=== PATIENT | female | born 1985 | race African-American/Black ===

== ENCOUNTER 2018-06-02 17:28 | Emergency (ER) | payer OTHER ==
[2018-06-02 18:23] LABS: URINE HCG POC HCG POSITIVE (Negative)
[2018-06-02 18:31] LABS: BILIRUBIN,URINE NEGATIVE (NEG); CLARITY,URINE TURBID; COLOR,URINE YELLOW; GLUCOSE,URINE NEGATIVE (NEG); NITRITE,URINE NEGATIVE (NEG); PROTEIN,URINE NEGATIVE (NEG-TRACE)
[2018-06-02] MEDS: ONDANSETRON PF 4 MG/2 ML VIAL. IV (18:38)
[2018-06-02] MEDS: IV NORMAL SALINE 1000ML BAG 1,000 ML IV (18:38)
[2018-06-02 18:39] LABS: AMORPHOUS SEDIMENT,UR PRESENT /HPF; BACTERIA,URINE FEW /HPF (0-FEW); RBC,URINE 0 /HPF (0-2); SQUAMOUS EPITHELIAL CELL,UR MOD /LPF; WBC,URINE 0 /HPF (0-4)
[2018-06-02 18:44] LABS: ADD MAN DIFF? NO
[2018-06-02 18:46] LABS: BASO # 0.1 x10^3/uL (0.0-0.2); BASO % 1 % (0-3); EOS # 0.1 x10^3/uL (0.0-0.7); EOS % 1 % (0-3); HEMATOCRIT 37.5 % (36.0-47.0); HEMOGLOBIN 12.7 g/dL (12.0-15.5); LYMPH # 2.8 x10^3/uL (1.0-4.8); LYMPH % 27 % (24-48); MEAN CORPUSCULAR HEMOGLOBIN 32 pg (25-35); MEAN CORPUSCULAR HGB CONC 34 g/dL (31-37); MEAN CORPUSCULAR VOLUME 96 fL (79-100); MONO # 0.6 x10^3/uL (0.0-1.1); MONO % 5 % (0-9); NEUT # 7.1 x10^3uL (1.8-7.7); NEUT % 66 % (31-73); PLATELET COUNT 251 x10^3/uL (140-400); RED BLOOD COUNT 3.93 x10^6/uL (3.50-5.40); RED CELL DISTRIBUTION WIDTH 13.1 % (11.5-14.5); WHITE BLOOD COUNT 10.7 x10^3/uL (4.0-11.0)
[2018-06-02 18:55] LABS: ANION GAP 10 (6-14); BLOOD UREA NITROGEN 6 mg/dL (7-20); BUN/CREATININE RATIO 12 (6-20); CALCIUM 9.2 mg/dL (8.5-10.1); CARBON DIOXIDE 26 mmol/L (21-32); CHLORIDE 100 mmol/L (98-107); CREATININE 0.5 mg/dL (0.6-1.0); GFR 170.9; GLUCOSE 86 mg/dL (70-99); SODIUM 136 mmol/L (136-145)
[2018-06-02 19:01] LABS: ALBUMIN 4.2 g/dL (3.4-5.0); ALBUMIN/GLOBULIN RATIO 1.1 (1.0-1.7); ALK PHOS 63 U/L (46-116); ALT (SGPT) 22 U/L (14-59); AST (SGOT) 17 U/L (15-37); TOTAL BILIRUBIN 0.5 mg/dL (0.2-1.0)
== END 2018-06-02 20:00 | disposition home or self-care (01) ==
LOC: ER 17:28
DX: O21.9 Vomiting of pregnancy, unspecified (principal); R11.0 Nausea; Z88.8 Allergy status to other drugs, medicaments and biological substances
CPT/HCPCS: 36415; 80053; 81001; 81025; 84702; 85025; 96361; 96374; 99284-25; J2405; J7030

== ENCOUNTER → 2018-07-26 | Outpatient (CLI) | payer OTHER ==
[2018-06-02 17:59] VITALS: BP 114/69
[~2018-07-26] MED LIST: ONDA4TAB7 PO
--- NOTE | 2018-07-28 19:04 | RAD ---
Obstetrical ultrasound, 07/26/2018: HISTORY: Supervision of normal Transabdominal scans were obtained. There is a single intrauterine fetus in a variable orientation. The biparietal diameter measures 4.4 cm compatible with a gestational age of 19-20 weeks. This corresponds well to the other measurements yielding an average gestational age of 19 weeks and 5 days and a sonographic EDC of 12/15/2018. Normal activity and heart motion are seen. A four-chamber heart is evident with a heart rate of 149 bpm. Fluid is evident in the bladder and stomach. The visualized portions of the spine and kidneys are unremarkable. A three-vessel umbilical cord is evident with a normal cord insertion site. The placenta lies posteriorly. Its inferior tip lies near the internal cervical os. The cervix was not clearly delineated, however, it it was measured at 2.6 cm. A normal amount of amniotic fluid is present with the MATTHEW calculated at 13.0. The maternal ovaries were not visualized. IMPRESSION: 1. Single viable intrauterine fetus of 19-20 weeks gestational age. 2. Low-lying placenta. 3. Shortened cervix. 4. Sonographic follow-up is suggested. Electronically signed by: Naveed Meadows MD (07/28/2018 7:00 PM) [facility]
== END | disposition home or self-care (01) ==
LOC: US 15:40
PROVIDERS: ATTEND Obstetrics & Gynecology
DX: O44.42 Low lying placenta NOS or without hemorrhage, second trimester (principal); Z3A.20 20 weeks gestation of pregnancy; Z85.41 Personal history of malignant neoplasm of cervix uteri
CPT/HCPCS: 76805

== ENCOUNTER 2018-09-25 12:02 | Observation (INO) | payer OTHER ==
[2018-06-02 17:59] VITALS: BP 114/69
[2018-09-25 12:50] LABS: BILIRUBIN,URINE NEGATIVE (NEG); CLARITY,URINE CLEAR; COLOR,URINE YELLOW; NITRITE,URINE NEGATIVE (NEG); PH,URINE 6.5; PROTEIN,URINE NEGATIVE (NEG-TRACE)
[2018-09-25 12:59] LABS: BACTERIA,URINE MODERATE /HPF (0-FEW); RBC,URINE 0 /HPF (0-2); SQUAMOUS EPITHELIAL CELL,UR MANY /LPF
== END 2018-09-25 13:30 | disposition home or self-care (01) ==
LOC: 3 SO LND 12:02
PROVIDERS: ADMIT Obstetrics & Gynecology; ATTEND Obstetrics & Gynecology
DX: O26.893 Other specified pregnancy related conditions, third trimester (principal); N89.8 Other specified noninflammatory disorders of vagina; Z3A.28 28 weeks gestation of pregnancy
CPT/HCPCS: 81001; 87086; G0378; G0379

== ENCOUNTER 2018-10-09 10:33 | Observation (INO) | payer OTHER ==
[2018-06-02 17:59] VITALS: BP 114/69
[2018-10-09 12:00] LABS: BILIRUBIN,URINE NEGATIVE (NEG); CLARITY,URINE CLOUDY; COLOR,URINE YELLOW; NITRITE,URINE NEGATIVE (NEG); PH,URINE 7.5; PROTEIN,URINE NEGATIVE (NEG-TRACE)
[2018-10-09 12:18] LABS: BACTERIA,URINE 0 /HPF (0-FEW); RBC,URINE 0 /HPF (0-2); SQUAMOUS EPITHELIAL CELL,UR FEW /LPF; WBC,URINE 0 /HPF (0-4)
== END 2018-10-09 13:03 | disposition home or self-care (01) ==
LOC: 3 SO LND 10:33
PROVIDERS: ADMIT Obstetrics & Gynecology; ATTEND Obstetrics & Gynecology
DX: O99.89 Other specified diseases and conditions complicating pregnancy, childbirth and the puerperium (principal); M54.9 Dorsalgia, unspecified; Z3A.30 30 weeks gestation of pregnancy
CPT/HCPCS: 81001; G0378; G0379

== ENCOUNTER 2018-11-26 19:05 | Observation (INO) | payer OTHER ==
[2018-06-02 17:59] VITALS: BP 114/69
[2018-11-26] MEDS ORDERED: IV RINGERS,LACTATED 1000ML 1,000 ML IV SCH (19:14)
[2018-11-26 19:52] LABS: BILIRUBIN,URINE NEGATIVE (NEG); CLARITY,URINE CLOUDY; COLOR,URINE YELLOW; NITRITE,URINE NEGATIVE (NEG); PH,URINE 6.5; PROTEIN,URINE NEGATIVE (NEG-TRACE)
[2018-11-26 19:58] LABS: BARBITURATES NEG (NEG); BENZODIAZEPINES NEG (NEG); CANNABINOIDS NEG (NEG); COCAINE NEG (NEG); METHADONE NEG (NEG); OPIATES NEG (NEG); PHENCYCLIDINE NEG (NEG)
[2018-11-26 19:59] LABS: AMPHETAMINE/METHAMPHETAMINE NEG (NEG)
[2018-11-26 20:04] LABS: AMORPHOUS SEDIMENT,UR PRESENT /HPF; BACTERIA,URINE FEW /HPF (0-FEW); RBC,URINE OCC /HPF (0-2); SQUAMOUS EPITHELIAL CELL,UR MOD /LPF; WBC,URINE OCC /HPF (0-4)
[2018-11-26] MEDS ORDERED: hydrOXYzine PAMOATE 25 MG CAPSULE PO PRN (20:30)
== END 2018-11-26 20:54 | disposition home or self-care (01) ==
LOC: 3 SO LND 19:05
PROVIDERS: ADMIT Obstetrics & Gynecology; ATTEND Obstetrics & Gynecology
DX: O62.9 Abnormality of forces of labor, unspecified (principal); Z3A.37 37 weeks gestation of pregnancy
CPT/HCPCS: 80307; 81001; G0378; G0379; Q0177

== ENCOUNTER 2018-11-30 22:56 | Observation (INO) | payer OTHER ==
[2018-06-02 17:59] VITALS: BP 114/69
[2018-11-30] MEDS ORDERED: IV RINGERS,LACTATED 1000ML 1,000 ML IV SCH (23:00)
[2018-12-01 00:25] LABS: BILIRUBIN,URINE NEGATIVE (NEG); CLARITY,URINE CLEAR; COLOR,URINE YELLOW; NITRITE,URINE NEGATIVE (NEG); PROTEIN,URINE NEGATIVE (NEG-TRACE); UROBILINOGEN,URINE 0.2 mg/dL (0.2 mg/dL)
[2018-12-01 00:39] LABS: BACTERIA,URINE MODERATE /HPF (0-FEW); RBC,URINE 0 /HPF (0-2); SQUAMOUS EPITHELIAL CELL,UR MOD /LPF; WBC,URINE OCC /HPF (0-4)
[2018-12-17] MEDS ORDERED: IBUP-1027 PO (12:26)
== END 2018-12-01 01:00 | disposition home or self-care (01) ==
LOC: 3 SO LND 22:56
PROVIDERS: ADMIT Obstetrics & Gynecology; ATTEND Obstetrics & Gynecology
DX: O62.9 Abnormality of forces of labor, unspecified (principal); Z3A.37 37 weeks gestation of pregnancy
CPT/HCPCS: 81001; 87086; G0378; G0379

== ENCOUNTER 2018-12-07 16:32 | Observation (INO) | payer OTHER ==
[2018-06-02 17:59] VITALS: BP 114/69
--- NOTE | 2018-12-07 19:50 | RAD ---
Obstetrical ultrasound HISTORY: Limited perceived movement. FINDINGS: Single intrauterine fetus is identified. Placenta is posterior. Amniotic fluid index is 15.7, within normal limits. movement is documented. cardiac activity is documented with a heart rate of 135 bpm. Biparietal diameter, head circumference, abdominal circumference and femur length are measured. Estimated sonographic age is 38 weeks 2 days with an estimated due date of December 19, 2018. Estimated weight is 7 lbs. 11 oz. +/- 18 ounces. Fetus is in a cephalic presentation. Anatomic survey not performed. IMPRESSION: Single viable intrauterine , estimated age 38 weeks 2 days. Electronically signed by: Juwan Aguiar MD (12/07/2018 7:45 PM) [facility]
[2018-12-17] MEDS ORDERED: IBUP-1027 PO (12:26)
== END 2018-12-07 20:17 | disposition home or self-care (01) ==
LOC: 3 SO LND 16:32
PROVIDERS: ADMIT Obstetrics & Gynecology; ATTEND Obstetrics & Gynecology
DX: O36.8130 Decreased fetal movements, third trimester, not applicable or unspecified (principal); Z3A.38 38 weeks gestation of pregnancy
CPT/HCPCS: 76815; G0378; G0379

== ENCOUNTER 2018-12-10 12:36 | Observation (INO) | payer OTHER ==
[2018-06-02 17:59] VITALS: BP 114/69
== END 2018-12-10 14:50 | disposition home or self-care (01) ==
LOC: 3 SO LND 12:36
PROVIDERS: ADMIT Obstetrics & Gynecology; ATTEND Obstetrics & Gynecology
DX: O62.9 Abnormality of forces of labor, unspecified (principal); Z3A.39 39 weeks gestation of pregnancy
CPT/HCPCS: G0378; G0379

== ENCOUNTER 2019-02-15 06:58 | Day surgery (SDC) | payer OTHER ==
[~2019-02-15 06:58] MED LIST changes: +BUPIVACAINE-EPI 0.25%-1:200000 MPF 30 ML VIAL. ONE; +IBUP-1027 PO
[2019-02-15] MEDS ORDERED: LIDOCAINE 1% PF 2 ML VIAL. ID PRN (07:00)
[2019-02-15] MEDS ORDERED: PROCHLORPERAZINE 10 MG/2 ML VIAL. IV PRN (07:00)
[2019-02-15] MEDS ORDERED: MORPHINE SULFATE 2 MG/ML VIAL. IV PRN (07:00)
[2019-02-15] MEDS ORDERED: HYDROmorphone 2 MG/ML VIAL IV PRN (07:00)
[2019-02-15] MEDS ORDERED: fentaNYL PF VIAL 100 MCG/2 ML VIAL IV PRN (07:00)
[2019-02-15] MEDS ORDERED: IV RINGERS,LACTATED 1000ML 1,000 ML IV SCH (07:00)
[2019-02-15] MEDS ORDERED: ONDANSETRON PF 4 MG/2 ML VIAL. IV PRN (07:00)
[2019-02-15 07:42] LABS: U PREG PATIENT NEGATIVE (NEG)
[2019-02-15] MEDS ORDERED: LIDOCAINE 2% PF 5 ML VIAL. ONE (08:12)
[2019-02-15] MEDS ORDERED: PROPOFOL 20 ML IV ONE (08:12)
[2019-02-15] MEDS ORDERED: FAMOTIDINE 20 MG/2 ML VIAL ONE (08:13)
[2019-02-15] MEDS ORDERED: ROCURONIUM 50 MG/5 ML VIAL. ONE (08:13)
[2019-02-15] MEDS ORDERED: DEXAMETHASONE SOD PHOS 20 MG/5 ML VIAL. ONE (08:13)
[2019-02-15] MEDS ORDERED: ONDANSETRON PF 4 MG/2 ML VIAL. ONE (08:13)
[2019-02-15] MEDS ORDERED: MIDAZOLAM HCL/PF 2 MG/2 ML VIAL. ONE (08:15)
[2019-02-15] MEDS ORDERED: fentaNYL PF VIAL 100 MCG/2 ML VIAL ONE ×2 (08:15→09:30)
[2019-02-15] MEDS ORDERED: NEOSTIGMINE METHYLSULFATE 5 MG/5 ML SYRINGE. ONE ×2 (09:05→09:23)
[2019-02-15] MEDS ORDERED: GLYCOPYRROLATE 1 MG/5 ML VIAL. ONE ×2 (09:06→09:23)
[2019-02-15] MEDS ORDERED: SEVOFLURANE 31 TO 60 MINUTES. IH ONE (09:10)
--- NOTE | 2019-02-15 09:27 | PDOC ---
BRIEF OPERATIVE NOTE Date: Feb 15, 2019 Pre-Op Diagnosis Sterilization Post-Op Diagnosis SA[facility] Procedure Performed [facility] BTL Surgeon Dr. Hodgson Anesthesia Type: General Blood Loss 10 ml Specimens Obtained none Findings nml size uterus, nml fallopian tubes and ovaries morales. Complications none Operative Note see dictation ADRIEN HODGSON Jr, MD Feb 15, 2019 09:27
--- NOTE | 2019-02-15 09:28 | DISCH ---
DISCHARGE INSTRUCTIONS Condition on Discharge Condition on Discharge: Stable Activity After Discharge Activity Instructions for Disc: Activity as tolerated Bathing Instructions: No Tub Bath until see Lifting Instructions after Dis: No heavy lifting, No pulling or pushing, Do not lift >10 pounds Driving Instructions after Dis: Do not drive today Diet after Discharge Diet after Discharge: Regular Diet Texture: Regular Wound Incision Care Wound/Incision Care: No wound care needed Contacting the DRBenjamin after DC Call your doctor for: Concerns you may have Follow-Up Follow up with: Dr. Hodgson in 1 week. Treatment/Equipment after DC Adaptive Equipment Issued: None ADRIEN HODGSON Jr, MD Feb 15, 2019 09:28
[2019-02-15] MEDS ORDERED: OXYC-325 PO (09:47)
[2019-02-15] MEDS ORDERED: oxyCODONE/APAP 5/325 1 TAB TABLET ONE (09:53)
[2019-02-15] MEDS: fentaNYL PF VIAL 100 MCG/2 ML VIAL IV PRN ×2 (09:54→10:34)
[2019-02-15] MEDS ORDERED: oxyCODONE/APAP 5/325 1 TAB TABLET PO ONE ×2 (10:00)
--- NOTE | 2019-02-15 10:05 | OP ---
DATE OF SURGERY: PREOPERATIVE DIAGNOSIS: Sterilization. POSTOPERATIVE DIAGNOSIS: Sterilization. PROCEDURE: Laparoscopic BTL. SURGEON: Ervin Hodgson MD ANESTHESIA: GETA. ESTIMATED BLOOD LOSS: Less than 10 mL. COMPLICATIONS: None. FINDINGS: Normal size uterus, normal fallopian tubes and ovaries bilaterally. SUMMARY: This is a 33-year-old female who desired permanent sterilization. She was counseled on risks, benefits and expectations as well as the failure rate and voiced clear understanding to proceed. DESCRIPTION OF PROCEDURE: The patient was taken to surgery suite and placed in dorsal lithotomy position. She was prepped with Betadine solution for vaginal prep and ChloraPrep for abdominal prep. After adequate anesthesia, bivalve speculum was placed vaginally. Anterior lip of the cervix grasped with single tooth tenaculum. Uterine acorn manipulator was then placed. The bivalve speculum was removed. Attention was now placed on abdomen. Small transverse skin incision made just below the umbilicus with the scalpel. The Veress needle was then placed through the infraumbilical incision site. The abdomen was allowed to insufflate up to 1-1/2 liters CO2 gas. The Veress needle was then removed, 5 mm trocar was placed. Scope was positioned. The uterus appeared normal. Fallopian tubes and ovaries appeared normal bilaterally. A second incision was made in the left lower quadrant with scalpel, in which 8 mm trocar was placed. With the aid of the Filshie clip applicator, the Filshie clip was applied to the isthmus region of the right fallopian tube, totally occluding the right fallopian tube. Same process took place with left adnexa. The trocars were then removed under direct visualization. The abdomen was allowed to deflate as much as possible along with mechanical manipulation. The two skin incisions were reapproximated using 4-0 Vicryl suture in subcuticular manner. A 0.25% Marcaine with epinephrine was injected at each incision site. Uterine acorn manipulator and single tooth tenaculum were removed. The patient tolerated the procedure well and was taken to the recovery room in stable condition. Sponge and needle count correct x 3. ERVIN HODGSON MD DR: KEAGAN/bharat JOB#: [id number] / [id number]
[2019-02-15 10:50] VITALS: BP 147/80
== END 2019-02-15 11:25 | disposition home or self-care (01) ==
LOC: SURG 06:58
PROVIDERS: ATTEND Obstetrics & Gynecology
DX: Z30.2 Encounter for sterilization (principal); Z88.1 Allergy status to other antibiotic agents; Z79.899 Other long term (current) drug therapy; Z83.3 Family history of diabetes mellitus; Z82.49 Family history of ischemic heart disease and other diseases of the circulatory system; Z82.3 Family history of stroke; F17.210 Nicotine dependence, cigarettes, uncomplicated; Z98.890 Other specified postprocedural states
CPT/HCPCS: 58671; 81025; A4264; A7015; J0780; J1100; J2001; J2250; J2270; J2405; J2704; J2710; J3010; J3490

== ENCOUNTER 2019-02-15 19:38 | Emergency (ER) | payer OTHER ==
[~2019-02-15] VITALS: Ht 165.1 cm; Wt 53.1 kg
[~2019-02-15 19:38] MED LIST changes: -BUPIVACAINE-EPI 0.25%-1:200000 MPF 30 ML VIAL. ONE; +OXYC-325 PO
[2019-02-15 20:12] VITALS: BP 118/70
--- NOTE | 2019-02-15 20:56 | PHYS DOC ---
Past Medical History Past Medical History: Cancer, Other Additional Past Medical Histor: CERVICAL CA (DUDLEY GOINS APRN) Past Surgical History: Tubal ligation, Other Additional Past Surgical Histo: LEEP (DUDLEY GOINS APRN) Alcohol Use: None Drug Use: None (DUDLEY GOINS APRN) Adult General Chief Complaint Chief Complaint: POST-OP PROBLEM HPI HPI Patient is a 33 year old AA female who presents to the ER with complaints of bleeding from her surgical site after coughing. Pt states that the incision below her belly button leaked blood after coughing this evening. She states that earlier today she had a laparoscopic tubal ligation by Dr. Hodgson. She denies any abdominal pain, bruising, or bloating. She denies any pain at this time. (DUDLEY GOINS APRN) Review of Systems Review of Systems Constitutional: Denies fever or chills [] GI: Denies abdominal pain Integument: See HPI Neurologic: Denies headache (DUDLEY GOINS APRN) Allergies Allergies Allergies Coded Allergies Type Severity Reaction Last Updated Verified doxycycline Allergy Intermediate "CAUSES LEGS TO GO NUMB" 02/15/19 Yes (VERA VOGT DO) Physical Exam Physical Exam Constitutional: Well developed, well nourished, no acute distress, non-toxic appearance. [] HENT: Normocephalic, atraumatic, bilateral external ears normal, nose normal. [] Eyes: conjunctiva normal, no discharge. [] Neck: Normal range of motion, no stridor. [] Lungs & Thorax: Respirations even and unlabored, no retractions, no respiratory distress Abdomen: soft, no tenderness, no masses, no pulsatile masses. [] Skin: Warm, dry, no erythema, no rash; 0.5 cm surgical incision site below umbilicus that opens with pressure applied, no active bleeding, no protruding tissue or intestines [] Neurologic: Alert and oriented X 3, no focal deficits noted. [] Psychologic: Affect normal, judgement normal, mood normal. [] (DUDLEY GOINS APRN) Current Patient Data Vital Signs Vital Signs Date Time Temp Pulse Resp B/P (MAP) Pulse Ox O2 Delivery O2 Flow Rate FiO2 02/15/19 20:12 98.2 65 16 118/70 (86) 99 Room Air 98.2 (VERA VOGT DO) EKG EKG [] (DUDLEY GOINS APRN) Radiology/Procedures Radiology/Procedures the incision site was cleansed with chlorhexadine and sterile saline, dermabond was applied to close the incision site and then 3 steri strips were placed. There were no complications, pt tolerated the procedure well. [] (DUDLEY GOINS APRN) Course & Med Decision Making Course & Med Decision Making Pertinent Labs and Imaging studies reviewed. (See chart for details) 2053- Spoke with Dr. Hodgson about surgical site dehiscence. Per Dr. Hodgson close the site with dermabond and a steri strip. Have patient call the office at 0830 tomorrow morning and schedule an appointment to be seen by him in the office tomorrow. [] (DUDLEY GOINS APRN) Dragon Disclaimer Dragon Disclaimer This electronic medical record was generated, in whole or in part, using a voice recognition dictation system. (DUDLEY GOINS APRN) Departure Departure Impression: Primary Impression: Encounter for examination of surgical site Additional Impression: Surgical history of tubal ligation Disposition: 01 HOME, SELF-CARE Condition: STABLE Referrals: NO PCP (PCP) Patient Instructions: Laparoscopic Tubal Ligation, Care After Additional Instructions: The surgical site was closed per Dr. Hodgson's recommendation. You need to call the office at 0830 tomorrow morning and schedule an appointment to be seen by him in the office tomorrow. Return to the ER if site begins to bleed before then. [] Attending Signature Attending Signature I have reviewed the PA/MINE CAR REPAIRER's note and plan of care. I was available for consultation as needed at all times during the patient's visit in the emergency department. I agree with the clinical impression, plan and disposition. (VERA VOGT DO) Problem Qualifiers DUDLEY GOINS APRN Feb 15, 2019 20:56 VERA VOGT DO Feb 18, 2019 10:05
== END 2019-02-15 21:41 | disposition home or self-care (01) ==
LOC: ER 19:38
DX: N99.820 Postprocedural hemorrhage of a genitourinary system organ or structure following a genitourinary system procedure (principal); Z88.1 Allergy status to other antibiotic agents; Y83.8 Other surgical procedures as the cause of abnormal reaction of the patient, or of later complication, without mention of misadventure at the time of the procedure; Y92.89 Other specified places as the place of occurrence of the external cause
CPT/HCPCS: 12020; 99284-25

== ENCOUNTER 2021-05-16 21:17 | Emergency (ER) | payer MEDICAID, OTHER ==
[~2021-05-16] VITALS: Ht 165.1 cm; Wt 60.0 kg
[2021-05-16] MEDS ORDERED: IV NORMAL SALINE 1000ML BAG 1,000 ML IV ONE (21:45)
[2021-05-16] MEDS ORDERED: ONDANSETRON PF 4 MG/2 ML VIAL. IVP ONE (21:45)
--- NOTE | 2021-05-16 21:48 | ED.ADGEN ---
Past Medical History Past Medical History: Cancer, Other Additional Past Medical Histor: CERVICAL CA Past Surgical History: Tubal ligation, Other Additional Past Surgical Histo: LEEP Smoking Status: Current Every Day Smoker Alcohol Use: Rarely Drug Use: None General Adult EDM: Chief Complaint: DEHYDRATION HPI: HPI: Patient is a 36 year old female brought in by EMS from work for nausea and vomiting, lightheadedness. Concerns for heat exhaustion. Patient has been drinking whiskey in her coffee all day, is unable to state how much she is drank. 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 Patient says she has been drinking due to stressors at home. Review of Systems: Review of Systems: All other systems within normal limits except for as noted in the HPI Current Medications: Current Medications Medications (Trade) Dose Ordered Sig/Patricia Start Time Stop Time Status Last Admin Dose Admin Ondansetron HCl (Zofran) 4 mg 1X ONCE 05/16/21 21:45 05/16/21 21:48 DC 05/16/21 21:45 4 MG Sodium Chloride 1,000 ml @ 1,000 mls/hr 1X ONCE 05/16/21 21:45 05/16/21 22:44 DC 05/16/21 21:45 1,000 MLS/HR Allergies: Allergies: Allergies Coded Allergies Type Severity Reaction Last Updated Verified doxycycline Allergy Intermediate "CAUSES LEGS TO GO NUMB" 02/15/19 Yes Physical Exam: PE: Constitutional: Well developed, well nourished, no acute distress, non-toxic appearance. [] HENT: Normocephalic, atraumatic, bilateral external ears normal, nose normal. [] Eyes: PERRLA, conjunctiva normal, no discharge. [] Neck: No rigidity, supple, no stridor. [] Cardiovascular: Regular rate and rhythm, brisk cap refill [] Lungs & Thorax: Non labored symmetric respirations, no tachypnea or respiratory distress [] Abdomen: Soft, nondistended. Skin: Warm, dry, no erythema, no rash. [] Back: Unremarkable Extremities: No deformities, range of motion grossly intact, no lower extremity edema [] Neurologic: Alert and oriented X 3, no focal deficits noted. [] Psychologic: Affect normal, judgement normal, mood normal. [] Current Patient Data: Labs: Laboratory Tests Test 05/16/21 22:25 White Blood Count 10.7 x10^3/uL (4.0-11.0) Red Blood Count 4.07 x10^6/uL (3.50-5.40) Hemoglobin 13.7 g/dL (12.0-15.5) Hematocrit 40.5 % (36.0-47.0) Mean Corpuscular Volume 100 fL (79-100) Mean Corpuscular Hemoglobin 34 pg (25-35) Mean Corpuscular Hemoglobin Concent 34 g/dL (31-37) Red Cell Distribution Width 13.0 % (11.5-14.5) Platelet Count 218 x10^3/uL (140-400) Neutrophils (%) (Auto) 71 % (31-73) Lymphocytes (%) (Auto) 20 % (24-48) L Monocytes (%) (Auto) 6 % (0-9) Eosinophils (%) (Auto) 2 % (0-3) Basophils (%) (Auto) 1 % (0-3) Neutrophils # (Auto) 7.6 x10^3/uL (1.8-7.7) Lymphocytes # (Auto) 2.2 x10^3/uL (1.0-4.8) Monocytes # (Auto) 0.7 x10^3/uL (0.0-1.1) Eosinophils # (Auto) 0.2 x10^3/uL (0.0-0.7) Basophils # (Auto) 0.1 x10^3/uL (0.0-0.2) Sodium Level 142 mmol/L (136-145) Potassium Level 4.9 mmol/L (3.5-5.1) Chloride Level 109 mmol/L (98-107) H Carbon Dioxide Level 26 mmol/L (21-32) Anion Gap 7 (6-14) Blood Urea Nitrogen 10 mg/dL (7-20) Creatinine 0.8 mg/dL (0.6-1.0) Estimated GFR (Cockcroft-Gault) 97.7 BUN/Creatinine Ratio 13 (6-20) Glucose Level 88 mg/dL (70-99) Calcium Level 9.0 mg/dL (8.5-10.1) Total Bilirubin 0.3 mg/dL (0.2-1.0) Aspartate Amino Transferase (AST) 19 U/L (15-37) Alanine Aminotransferase (ALT) 22 U/L (14-59) Alkaline Phosphatase 60 U/L (46-116) Total Protein 6.8 g/dL (6.4-8.2) Albumin 4.0 g/dL (3.4-5.0) Albumin/Globulin Ratio 1.4 (1.0-1.7) Lipase 48 U/L (73-393) L Ethyl Alcohol Level 132 mg/dL (0-10) H Laboratory Tests 05/16/21 22:25 Laboratory Tests 05/16/21 22:25 Vital Signs: Vital Signs Date Time Temp Pulse Resp B/P (MAP) Pulse Ox O2 Delivery O2 Flow Rate FiO2 05/16/21 22:19 97.3 97.3 05/16/21 21:45 72 18 107/54 (71) 100 Room Air EKG: EKG: [] Heart Score: C/O Chest Pain: No Risk Factors: Risk Factors: DM, Current or recent (<one month) smoker, HTN, HLP, family history of CAD, obesity. Risk Scores: Score 0 - 3: 2.5% MACE over next 6 weeks - Discharge Home Score 4 - 6: 20.3% MACE over next 6 weeks - Admit for Clinical Observation Score 7 - 10: 72.7% MACE over next 6 weeks - Early Invasive Strategies Radiology/Procedures: Radiology/Procedures: [] Course & Med Decision Making: Course & Med Decision Making Patient tolerating p.o., labs unremarkable. Dragsammy Disclaimer: Armando Disclaimer: This electronic medical record was generated, in whole or in part, using a voice recognition dictation system. Departure Departure Impression: Primary Impression: Dehydration Additional Impression: Alcohol intoxication Disposition: HOME / SELF CARE / HOMELESS Condition: STABLE Referrals: NO PCP (PCP) Patient Instructions: Alcohol Intoxication Additional Instructions: Can follow-up with [facility] for information regarding alcohol abuse [phone] or 24 hr crisis line [phone] Problem Qualifiers JOSETTE SEGOVIA MD May 16, 2021 21:47
[2021-05-16 22:41] LABS: BASO # 0.1 x10^3/uL (0.0-0.2); BASO % 1 % (0-3); EOS # 0.2 x10^3/uL (0.0-0.7); EOS % 2 % (0-3); HEMATOCRIT 40.5 % (36.0-47.0); HEMOGLOBIN 13.7 g/dL (12.0-15.5); LYMPH # 2.2 x10^3/uL (1.0-4.8); LYMPH % 20 % (24-48); MEAN CORPUSCULAR HEMOGLOBIN 34 pg (25-35); MEAN CORPUSCULAR HGB CONC 34 g/dL (31-37); MEAN CORPUSCULAR VOLUME 100 fL (79-100); MONO # 0.7 x10^3/uL (0.0-1.1); MONO % 6 % (0-9); NEUT # 7.6 x10^3/uL (1.8-7.7); NEUT % 71 % (31-73); PLATELET COUNT 218 x10^3/uL (140-400); RED BLOOD COUNT 4.07 x10^6/uL (3.50-5.40); WHITE BLOOD COUNT 10.7 x10^3/uL (4.0-11.0)
[2021-05-16 22:54] LABS: CREATININE 0.8 mg/dL (0.6-1.0); GFR 97.7; POTASSIUM 4.9 mmol/L (3.5-5.1)
[2021-05-16 23:00] VITALS: BP 130/85
[2021-05-16 23:00] LABS: ALBUMIN/GLOBULIN RATIO 1.4 (1.0-1.7); TOTAL BILIRUBIN 0.3 mg/dL (0.2-1.0); TOTAL PROTEIN 6.8 g/dL (6.4-8.2)
== END 2021-05-16 23:45 | disposition home or self-care (01) ==
LOC: ER 21:17
DX: E86.0 Dehydration (principal); F10.129 Alcohol abuse with intoxication, unspecified; Y90.6 Blood alcohol level of 120-199 mg/100 ml; R11.2 Nausea with vomiting, unspecified
CPT/HCPCS: 36415; 80053; 83690; 85025; 96361; 96374; 99283; G0480; J2405; J7030